=== PATIENT | male | born 1990 | race Caucasian/White ===

== ENCOUNTER 2021-08-08 19:07 | Inpatient (IN) | payer OTHER ==
[~2021-08-08] VITALS: Ht 188 cm; Wt 114.5 kg
--- NOTE | 2021-08-08 20:20 | NUR ---
BIBS FOR C/O SUPRAPUBIC AND SCROTAL CELLULITIS. WAS D/C'D FROM [facility] 2 WKS AGO AND FINISHED A DOSE OF DOXYCYCLINE TODAY. PATIENT ALERT AND ORIENTED X3. AMBULATORY WITH NON LABORED BREATHING.
[2021-08-08] MEDS ORDERED: IV NS 0.9% 500 ML BAG IV ONE (20:30)
[2021-08-08] MEDS ORDERED: PIPERACILLIN /TAZOBACTAM 3.375 G in IV D5W 50 ML IV ONE (20:30)
[2021-08-08] MEDS ORDERED: VANCOMYCIN 1 GM in IV D5W 250 ML IV ONE (20:30)
[2021-08-08] MEDS ORDERED: VANCOMYCIN 1 GM VIAL ONE (20:45)
[2021-08-08] MEDS ORDERED: PIPERACILLIN /TAZOBACTAM 3.375 G VIAL IV ONE (20:45)
--- NOTE | 2021-08-08 20:46 | NUR ---
BLOOD SAMPLE OBTAINED AND SENT TO LAB
[2021-08-08 21:00] LABS: BASOPHILS # (AUTO) 0.1 K/uL (0.0-0.2); BASOPHILS % (AUTO) 0.5 % (0.0-2.0); EOSINOPHILS % (AUTO) 2.2 % (0.0-6.0); HEMATOCRIT 39 % (39-51); HEMOGLOBIN 12.7 g/dL (13.5-17.5); LYMPHOCYTES # (AUTO) 3.4 K/uL (0.8-4.8); LYMPHOCYTES % (AUTO) 21.2 % (20.0-44.0); MEAN CORPUSCULAR HGB CONC 33 g/dl (31.0-36.0); MEAN CORPUSCULAR VOLUME 80 fL (80-96); MONOCYTES % (AUTO) 6.4 % (2.0-12.0); NEUTROPHILS # (AUTO) 11.3 K/uL (1.8-8.9); NEUTROPHILS % (AUTO) 69.7 % (43.0-81.0); PLATELET COUNT (AUTO) 425 K/uL (150-450); RED BLOOD CELL COUNT(AUTO) 4.85 MIL/uL (4.5-6.0); WHITE BLOOD COUNT (AUTO) 16.3 K/uL (4.3-11.0)
[2021-08-08] MEDS ORDERED: DIATR MEGLU/DIATRIZOATE SODIUM 30 ML BOTTLE (GASTROGRAPHIN) ONE (21:00)
--- NOTE | 2021-08-08 21:00 | NUR ---
COVID SWAB DONE AND SENT TO THE BACK
[2021-08-08 21:17] LABS: CALCIUM, SERUM 9.4 mg/dL (8.5-10.1); CREATININE 1.3 mg/dL (0.6-1.3); POTASSIUM 4.3 mmol/L (3.5-5.1)
[2021-08-08 21:30] LABS: ALBUMIN 3.5 g/dL (3.4-5.0); BILIRUBIN,DIRECT 0.1 mg/dL (0.0-0.2); BILIRUBIN,TOTAL 0.4 mg/dL (0.2-1.0); TOTAL PROTEIN, SERUM 8.6 g/dL (6.4-8.2)
[2021-08-08] MEDS ORDERED: IOHEXOL-300 100 ML VIAL IV ONE (22:05)
[2021-08-08] MEDS ORDERED: CT SWABBABLE VALVE TRANS SET 1 EA INFUS.SET MC ONE (22:06)
[2021-08-08] MEDS ORDERED: IV NS 0.9% 250 ML IV ONE (22:06)
[2021-08-08] MEDS ORDERED: DIATR MEGLU/DIATRIZOATE SODIUM 120 ML BOTTLE (GASTROGRAPHIN) ONE (22:13)
--- NOTE | 2021-08-08 22:33 | NUR ---
PT GOING TO CT
[2021-08-08] MEDS ORDERED: HYDROCODONE/APAP 10/325MG TABLET ONE (23:58)
[2021-08-08] MEDS ORDERED: MEROPENEM 1 G VIAL IV ONE (23:58)
[2021-08-09] MEDS ORDERED: MAGNESIUM HYDROXIDE 30 ML UDC PO PRN
[2021-08-09] MEDS ORDERED: ONDANSETRON HCL/PF 4 MG/2 ML VIAL IVP PRN
[2021-08-09] MEDS ORDERED: ZOLPIDEM TARTRATE 5 MG TABLET PO PRN
[2021-08-09] MEDS ORDERED: MAG HYDROX/AL HYDROX/SIMETH 30 ML UDC PO PRN
[2021-08-09] MEDS ORDERED: ACETAMINOPHEN 325 MG TABLET PO PRN
[2021-08-09] MEDS ORDERED: HYDROCODONE/APAP 10/325MG TABLET PO PRN
[2021-08-09] MEDS: MEROPENEM 1 G in IV NS 0.9% 100 ML IV SCH ×4 (00:12→22:07)
[2021-08-09] MEDS: IV 1/2NS 1000 ML 1,000 ML IV PRN ×2 (00:34→05:49)
--- NOTE | 2021-08-09 01:04 | NUR ---
Jose lorenzo in [facility] - 08/09/21 at 0104 by PHONG Patient discharged to home in stable condition. Written and verbal after care instructions given. Patient verbalizes understanding of instruction.
[2021-08-09] MEDS ORDERED: MORPHINE SULFATE INJ 2 MG/ML DISP.SYRIN ONE (02:23)
[2021-08-09] MEDS: MORPHINE SULFATE INJ 2 MG/ML DISP.SYRIN IV PRN ×3 (02:27→10:44)
[2021-08-09] MEDS: HYDROCODONE/APAP 5/325MG TABLET PO PRN ×3 (02:28→20:36)
--- NOTE | 2021-08-09 04:18 | NUR ---
BED 306-1
--- NOTE | 2021-08-09 04:20 | NUR ---
MRSA SWAB COLLECTED AND SENT TO LAB. PATIENT'S BELONGINGS LIST DONE.
--- NOTE | 2021-08-09 04:50 | NUR ---
Jose lorenzo in [facility] - 08/09/21 at 0603 by PHONG REPORT GIVEN TO SHYAM CUEVAS
[2021-08-09 05:00] LABS: BASOPHILS # (AUTO) 0.1 K/uL (0.0-0.2); BASOPHILS % (AUTO) 0.5 % (0.0-2.0); EOSINOPHILS % (AUTO) 3.1 % (0.0-6.0); HEMATOCRIT 36 % (39-51); HEMOGLOBIN 11.9 g/dL (13.5-17.5); LYMPHOCYTES # (AUTO) 3.3 K/uL (0.8-4.8); MEAN CORPUSCULAR HGB CONC 33 g/dl (31.0-36.0); MEAN CORPUSCULAR VOLUME 79 fL (80-96); MONOCYTES # (AUTO) 1.2 K/uL (0.1-1.30); MONOCYTES % (AUTO) 8.6 % (2.0-12.0); NEUTROPHILS # (AUTO) 8.7 K/uL (1.8-8.9); NEUTROPHILS % (AUTO) 63.8 % (43.0-81.0); PLATELET COUNT (AUTO) 417 K/uL (150-450); WHITE BLOOD COUNT (AUTO) 13.7 K/uL (4.3-11.0)
[2021-08-09 05:42] LABS: CALCIUM, SERUM 9.2 mg/dL (8.5-10.1); CREATININE 1.3 mg/dL (0.6-1.3); MAGNESIUM 2.1 mg/dL (1.8-2.4); PHOSPHORUS 3.5 mg/dL (2.5-4.9); POTASSIUM 4.3 mmol/L (3.5-5.1)
[2021-08-09] MEDS ORDERED: MEROPENEM 1 G VIAL IV ONE (05:46)
--- NOTE | 2021-08-09 05:52 | NUR ---
Jose lorenzo in [facility] - 08/09/21 at 0603 by PHONG PATIENT TO BE TRANSFERRED AFTER 630 PER RN
--- NOTE | 2021-08-09 06:45 | NUR ---
MS RN NOTE PATIENT ARRIVED ON UNIT, ALERT/ORIENTED X 3, PT ABLE TO MAKE NEEDS KNOWN. PT STABLE ON RA, NO S/S OF DISTRESS OR SOB NOTED, BREATHING EVEN AND UNLABORED. LEFT AC #18G INTACT AND FLUSHING WELL, 1/2 NS RUNNING @ 75 ML/HR. PATIENT AMBULATORY AND STEADY. SAFETY MEASURES IN PLACE: CALL LIGHT WITHIN REACH, SIDE RAILS UP X 2, BED LOCKED IN LOW POSITION. ENDORSED TO DAY SHIFT NURSE FOR CONTINUITY OF CARE Addendum: 08/09/21 at 0732 by FAITH JIMENEZ RN WILL ENDORSE TO DAY SHIFT NURSE FOR CONTINUITY OF CARE
--- NOTE | 2021-08-09 06:57 | NUR ---
TRANSFERRED PATIENT TO [facility]
[2021-08-09 07:30] VITALS: BP 140/88
--- NOTE | 2021-08-09 07:30 | NUR ---
MS RN OPENING NOTES RECEIVED PATIENT ON BED, AWAKE AND A/O X4. ON ROOM AIR TOLERATING WELL. NO SOB NOTED. NOT IN DISTRESS. WITH IV ACCESS AT LEFT AC G18 WITH 1/2NS AT 75ML/HR INFUSING WELL. WITH NO COMPLAINTS OF PAIN AT THIS TIME. SAFETY MEASURES IN PLACED. CALL LIGHT WITHIN REACH. BED ON LOWEST LOCKED POSITION, SIDE RAILS UP X2. WILL CONTINUE TO MONITOR.
[2021-08-09] MEDS ORDERED: HYDR-3980 PO (08:06)
[2021-08-09] MEDS ORDERED: LACT1CAP72 PO (08:06)
[2021-08-09] MEDS: VANCOMYCIN 1.5 GM in IV D5W 500 ML IV SCH ×2 (08:29→20:01)
[2021-08-09] MEDS ORDERED: FLUCONAZOLE (100 MG) 100 MG TABLET PO ONE (12:30)
[2021-08-09] MEDS ORDERED: HYDROMORPHONE MDV 0.5 MG in IV D5W 50 ML IV PRN (12:30)
[2021-08-09] MEDS: HYDROMORPHONE 1 MG/1 ML DISP.SYRIN IV PRN ×2 (15:58→22:07)
[2021-08-09 16:00] VITALS: BP 112/75
--- NOTE | 2021-08-09 19:30 | NUR ---
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
--- NOTE | 2021-08-09 19:38 | NUR ---
MS RN CLOSING NOTES PATIENT ON BED, AWAKE AND A/O X4. ON ROOM AIR TOLERATING WELL. NO SOB NOTED. NOT IN DISTRESS. WITH IV ACCESS AT LEFT AC G18 WITH 1/2NS AT 75ML/HR INFUSING WELL. WITH NO COMPLAINTS OF PAIN AT THIS TIME. SAFETY MEASURES IN PLACED. CALL LIGHT WITHIN REACH. BED ON LOWEST LOCKED POSITION, SIDE RAILS UP X2. WILL ENDORSE TO NEXT SHIFT FOR BRIANA.
[2021-08-09 20:00] VITALS: BP 143/72
--- NOTE | 2021-08-09 20:25 | NUR ---
MS RN NOTES DR HOOPER,HOSPITALIST PROCESS CAMERA OPERATOR FOR TONIGHT MADE AWARE ABOUT FREQUENCY OF DILAUDID,THAT PATIENT REQUESTING IF IT CAN BE CHANGED TO Q 4 HOURS,DOCTORS SAID "NO".PATIENT MADE AWARE OF DOCTORS DISPOSITION AND ALSO MADE AWARE THAT HE HAS NORCO 5/325 TABLET,HE CAN GET IN BETWEEN OF HIS DILAUDID IV,PATIENT AGREED.
--- NOTE | 2021-08-09 20:36 | NUR ---
MS RN NOTES PAIN MANAGEMENT C/O HYPOGASTRIC PAIN 7/10 ON PAIN SCALE,NORCO 5/325MG,1TAB PO GIVEN ORDERED.
--- NOTE | 2021-08-09 21:00 | NUR ---
MS RN NOTES OFFERED [employer] [facility] BUT REFUSED,CLAIMED HE GOT STOMACH UPSET.
[2021-08-09] MEDS: LACTOBACILLUS RHAMNOSUS GG 1 EACH CAP.SPRINK PO SCH ×2 (21:08→21:12)
--- NOTE | 2021-08-09 22:07 | NUR ---
MS RN NOTES PAIN MANAGEMENT STILL IN PAIN 8/10 ON PAIN SCALE,DILAUDID 0.5MG IV GIVEN ORDERED.
--- NOTE | 2021-08-09 22:15 | NUR ---
MS RN NOTES SEEN BY NOHEMI FOR ID CONSULT,WITH NOTES TO CONTINUE WITH CURRENT REGIMEN,PATIENT IMPROVING.
[2021-08-09 22:50] LABS: BILIRUBIN,URINE NEGATIVE (NEGATIVE); COLOR,URINE YELLOW (YELLOW); LEUKOCYTE ESTERASE ,URINE NEGATIVE (NEGATIVE); NITRITE, URINE NEGATIVE (NEGATIVE); PH,URINE 5.5 (5.0-8.0); PROTEIN,URINE NEGATIVE (NEGATIVE); UGLUCOSE NEGATIVE (NEGATIVE); UROBILINOGEN,URINE 0.2 EU/dL (0.2)
[2021-08-10] MEDS: HYDROMORPHONE 1 MG/1 ML DISP.SYRIN IV PRN ×4 (04:02→22:07)
--- NOTE | 2021-08-10 04:02 | NUR ---
MS RN NOTES PAIN MANAGEMENT AWAKE,C/O ABDOMINAL PAIN.DILAUDID 0.5MG IV GIVEN ORDERED.
[2021-08-10] MEDS: MEROPENEM 1 G in IV NS 0.9% 100 ML IV SCH ×3 (04:48→22:14)
--- NOTE | 2021-08-10 06:20 | NUR ---
MS RN NOTES ON BED SLEEPING,PAIN MANAGEMENT EFFECTIVE,IVF INFUSING WELL ON LEFT AC SALINE LOCK VIA IV PUMP,NO N/V/DIARRHEA NOTED.IV ABX TOLERATED WELL AND NO ADVERSE SIDE EFFECTS NOTED.CALL LIGHT IN REACH,NEEDS ATTENDED.IN NO ACUTE DISTRESS.
[2021-08-10 06:37] LABS: BASOPHILS % (AUTO) 0.4 % (0.0-2.0); EOSINOPHILS % (AUTO) 5.9 % (0.0-6.0); HEMATOCRIT 37 % (39-51); HEMOGLOBIN 12.3 g/dL (13.5-17.5); LYMPHOCYTES % (AUTO) 33.8 % (20.0-44.0); MEAN CORPUSCULAR HGB CONC 34 g/dl (31.0-36.0); MEAN CORPUSCULAR VOLUME 80 fL (80-96); MONOCYTES # (AUTO) 0.8 K/uL (0.1-1.30); MONOCYTES % (AUTO) 9.4 % (2.0-12.0); NEUTROPHILS # (AUTO) 4.5 K/uL (1.8-8.9); NEUTROPHILS % (AUTO) 50.5 % (43.0-81.0); PLATELET COUNT (AUTO) 398 K/uL (150-450); RED BLOOD CELL COUNT(AUTO) 4.61 MIL/uL (4.5-6.0)
[2021-08-10 07:10] LABS: CALCIUM, SERUM 9.1 mg/dL (8.5-10.1); MAGNESIUM 2.3 mg/dL (1.8-2.4); PHOSPHORUS 3.5 mg/dL (2.5-4.9); POTASSIUM 3.7 mmol/L (3.5-5.1)
--- NOTE | 2021-08-10 07:30 | NUR ---
MS RN OPENING NOTES RECEIVED PATIENT ON BED, ASLEEP, EASILY AWAKEN BY VERBAL AND TACTILE STIMULI. ON ROOM AIR TOLERATING WELL. NO SOB NOTED. NOT IN DISTRESS. WITH IV ACCESS AT LEFT AC G18 WITH 1/2NS AT 75ML/HR INFUSING WELL, NO S/SX OF INFILTRATION NOTED. WITH NO COMPLAINTS OF PAIN AT THIS TIME. SAFETY MEASURES IN PLACED. CALL LIGHT WITHIN REACH. BED ON LOWEST LOCKED POSITION, SIDE RAILS UP X2. WILL CONTINUE TO MONITOR ACCORDINGLY.
[2021-08-10 08:00] VITALS: BP 116/61
[2021-08-10] MEDS: VANCOMYCIN 1.5 GM in IV D5W 500 ML IV SCH ×2 (08:03→21:01)
--- NOTE | 2021-08-10 11:11 | NUR ---
RN NOTES IV ACCESS ON LEFT AC NOTED TO BE LEAKING. REINSERTED IV USING IV CATH G#20 ON PATIENT'S LEFT HAND. PATENT NAD FLUSHES WELL.
[2021-08-10] MEDS: IV 1/2NS 1000 ML 1,000 ML IV PRN (12:22)
[2021-08-10 16:00] VITALS: BP 134/88
--- NOTE | 2021-08-10 18:55 | NUR ---
MS RN CLOSING NOTES PATIENT ON BED, ASLEEP, EASILY AWAKEN BY VERBAL AND TACTILE STIMULI. ON ROOM AIR TOLERATING WELL. NO SOB NOTED. NOT IN DISTRESS. WITH IV ACCESS AT LEFT AC G18. REFUSING IV FLUID. NO S/SX OF INFILTRATION NOTED. WITH NO COMPLAINTS OF PAIN AT THIS TIME. SAFETY MEASURES IN PLACED. CALL LIGHT WITHIN REACH. BED ON LOWEST LOCKED POSITION, SIDE RAILS UP X2. PAIN MANAGED BY PAIN MEDICATION DURING SHIFT. ALL NEEDS ATTENDED AND MET. DUE MEDS GIVEN ORDERED. WILL ENDORSE TO ONCOMING SHIFT FOR BRIANA.
[2021-08-10 20:00] VITALS: BP 134/80
[2021-08-10] MEDS: LACTOBACILLUS RHAMNOSUS GG 1 EACH CAP.SPRINK PO SCH (21:00)
[2021-08-11] MEDS: HYDROMORPHONE 1 MG/1 ML DISP.SYRIN IV PRN ×2 (04:17→10:23)
[2021-08-11] MEDS: MEROPENEM 1 G in IV NS 0.9% 100 ML IV SCH ×2 (05:07→13:41)
--- NOTE | 2021-08-11 06:08 | NUR ---
MS RN NOTES AWAKE & RESPONSIVE. NOT IN ANY DISTRESS. NO SOB NOTED. DENIES ANY PAIN OR DISCOMFORT AT THIS TIME. WITH IV-HL PATENT & INTACT. MONITORED ACCORDINGLY. CALL LIGHT WITHIN REACH. BED IN LOWEST POSITION. SR UP X 2 FOR SAFETY. WILL ENDORSE TO NEXT SHIFT.
[2021-08-11 06:43] LABS: BASOPHILS % (AUTO) 0.4 % (0.0-2.0); EOSINOPHILS % (AUTO) 5.4 % (0.0-6.0); HEMATOCRIT 37 % (39-51); HEMOGLOBIN 12.3 g/dL (13.5-17.5); LYMPHOCYTES # (AUTO) 2.9 K/uL (0.8-4.8); LYMPHOCYTES % (AUTO) 29.9 % (20.0-44.0); MEAN CORPUSCULAR HGB CONC 33 g/dl (31.0-36.0); MEAN CORPUSCULAR VOLUME 80 fL (80-96); MONOCYTES # (AUTO) 0.7 K/uL (0.1-1.30); MONOCYTES % (AUTO) 7.6 % (2.0-12.0); NEUTROPHILS # (AUTO) 5.6 K/uL (1.8-8.9); NEUTROPHILS % (AUTO) 56.7 % (43.0-81.0); PLATELET COUNT (AUTO) 404 K/uL (150-450); RED BLOOD CELL COUNT(AUTO) 4.61 MIL/uL (4.5-6.0); WHITE BLOOD COUNT (AUTO) 9.8 K/uL (4.3-11.0)
--- NOTE | 2021-08-11 07:20 | NUR ---
MS RN OPENING NOTES RECEIVED PATIENT IN BED WITH EYES CLOSED, RESPONDS TO VERBAL AND TACTILE STIMULI. ON ROOM AIR WITH NO S/SX OF RESPIRATORY DISTRESS NOTED. IV ACCESS AT LEFT AC G#18 INTACT AND PATENT. NO COMPLAINTS VERBALIZED AT THIS TIME. SAFETY MEASURES IN PLACE: BED ON LOWEST LOCKED POSITION, SIDE RAILS UP X2, BED WHEELS LOCKED AND CALL LIGHT WITHIN REACH. WILL CONTINUE PLAN OF CARE
[2021-08-11 07:21] LABS: CALCIUM, SERUM 8.9 mg/dL (8.5-10.1); MAGNESIUM 2.3 mg/dL (1.8-2.4); PHOSPHORUS 3.1 mg/dL (2.5-4.9); POTASSIUM 3.8 mmol/L (3.5-5.1)
[2021-08-11 08:04] VITALS: BP 120/73
[2021-08-11] MEDS ORDERED: DOXY100C2 PO (08:28)
[2021-08-11] MEDS: LACTOBACILLUS RHAMNOSUS GG 1 EACH CAP.SPRINK PO SCH (08:30)
[2021-08-11] MEDS ORDERED: VANCOMYCIN 1.25 GM in IV D5W 250 ML IV SCH (10:00)
--- NOTE | 2021-08-11 15:05 | NUR ---
CABINET BUILDER NOTES PATIENT IS MEDICALLY STABLE FOR DISCHARGE. V/S WNL. PATIENT WAS EDUCATED ON DISCHARGE INSTRUCTIONS. EXIT CARE PACKET WAS PROVIDED. PATIENT VERBALIZED UNDERSTANDING OF OVERALL HEALTH AND DISCHARGE INSTRUCTIONS. ALL DOCUMENTS ARE SIGNED AND ALL BELONGINGS ACCOUNTED FOR. IV ACCESS REMOVED AND ID BAND REMOVED. PATIENT LEFT IN PRIVATE CAR ACCOMPANIED BY BROTHER.
--- NOTE | 2021-08-11 15:10 | NUR ---
RN NOTES PATIENT HAS WOUND DOCUMENTATION PHOTOS OF THE SCROTUM AND PERINEAL AREA. PATIENT IS REFUSING TO HAVE PHOTOS TAKEN UPON DISCHARGE. GENERAL REDNESS HAS LESSENED/RESOLVED.
== END 2021-08-11 15:40 | disposition home or self-care (01) | DRG 501 ==
LOC: ER 19:11 → TRANSITION 23:44 → MED 08-09 04:19
PROVIDERS: ADMIT Registered Nurse; ATTEND Registered Nurse
DX: N49.2 Inflammatory disorders of scrotum (principal); D64.9 Anemia, unspecified; N50.89 Other specified disorders of the male genital organs; F11.20 Opioid dependence, uncomplicated; Z90.49 Acquired absence of other specified parts of digestive tract; Z20.822 Contact with and (suspected) exposure to COVID-19; Z87.19 Personal history of other diseases of the digestive system; Z80.9 Family history of malignant neoplasm, unspecified; Z98.890 Other specified postprocedural states; N39.0 Urinary tract infection, site not specified; K51.90 Ulcerative colitis, unspecified, without complications
CPT/HCPCS: 36415; 80048-TC; 80076-TC; 80202-TC; 83605-TC; 83735-TC; 84100-TC; 85025-TC; 87040-TC; 87045-TC; 87081-TC; 87177; 87209; C9803; G0378; J1170; J2185; J2270; J2405; J2543; J3370; J3490; J7030; J7050; J7060; Q9963; Q9967